=== PATIENT | male | born 1960 | race African-American/Black ===

== ENCOUNTER 2019-12-22 14:13 | Inpatient (IN) | payer MEDICARE, MEDICAID ==
[~2019-12-22] VITALS: Ht 190.5 cm; Wt 95.3 kg
[2019-12-22] MEDS ORDERED: SODIUM CHLORIDE 0.9% 1,000 ML IV ONE (14:31)
[2019-12-22 15:01] LABS: BASOPHILS % 1.2 % (0.0-2.0); EOSINOPHILS % 2.5 % (0.0-5.0); HEMATOCRIT. 42.6 % (42.0-52.0); HEMOGLOBIN. 14.2 g/dL (14.0-18.0); LYMPHOCYTES % 19.5 % (20.0-50.0); MEAN CORPUSCULAR HEMOGLOBIN 30.2 pg (28.0-32.0); MEAN CORPUSCULAR VOLUME 90.8 fL (80.0-94.0); MONOCYTES % 7.1 % (2.0-8.0); NEUTROPHILS % 69.7 % (40.0-76.0); RED BLOOD CELL COUNT 4.69 mill/uL (4.7-6.1); RED CELL DISTRIBUTION WIDTH 13.4 % (11.6-14.6)
[2019-12-22 15:08] LABS: CHLORIDE 109 mEq/L (98-107)
[2019-12-22 15:13] LABS: INR 1.1; PROTHROMBIN TIME 11.3 sec (9.6-11.0)
[2019-12-22 15:40] LABS: MEAN PLATELET VOLUME 10.6 fl (7.4-10.4); PLATELET 126 x1000/uL (130-400)
[2019-12-22] MEDS ORDERED: ASPIRIN 325MG TABLET PO ONE (16:00)
[2019-12-22 17:02] LABS: CLARITY URINE CLEAR (CLEAR); COLOR URINE YELLOW (YELLOW); KETONES URINE NEGATIVE (NEGATIVE); LEUKOCYTE ESTERASE URINE NEGATIVE (NEGATIVE); NITRITE URINE NEGATIVE (NEGATIVE); OCCULT BLOOD URINE NEGATIVE (NEGATIVE); PROTEIN URINE TRACE (NEGATIVE); SPECIFIC GRAVITY URINE 1.022 (1.005-1.030)
[2019-12-22 18:00] VITALS: BP 168/87
[2019-12-22] MEDS ORDERED: CLONIDINE 0.1MG TABLET PO PRN (18:30)
[2019-12-22] MEDS ORDERED: MAGNESIUM/ALUMINUM HYDROXIDE/SIMETHICONE 30ML UDC PO PRN (18:30)
[2019-12-22] MEDS ORDERED: DOCUSATE SODIUM 100MG CAPSULE PO PRN (18:30)
[2019-12-22] MEDS ORDERED: ACETAMINOPHEN 325MG TABLET PO PRN (18:30)
[2019-12-22] MEDS ORDERED: METOPROLOL TARTRATE 25MG TABLET PO SCH (18:30)
[2019-12-22] MEDS ORDERED: HYDROCODONE/ACETAMINOPHEN 5/325MG TABLET PO PRN (18:30)
[2019-12-22] MEDS ORDERED: HYDRALAZINE 20MG/ML VIAL IV PRN (18:30)
[2019-12-22] MEDS ORDERED: ONDANSETRON HCL 4MG/2ML INJ IV PRN (18:30)
[2019-12-22 18:41] VITALS: BP 168/87
[2019-12-22] MEDS ORDERED: POTASSIUM CHLORIDE 20MEQ TABLET SR PO NR (18:45)
[2019-12-22] MEDS: AMLODIPINE 10MG TABLET PO SCH (18:53)
[2019-12-22] MEDS: LISINOPRIL 20MG TABLET PO SCH (18:53)
[2019-12-22 20:00] VITALS: BP 183/93
[2019-12-22] MEDS: ENOXAPARIN 40MG/0.4ML SYR SUBCUT SCH (20:24)
[2019-12-22] MEDS ORDERED: blood pressure (23:04)
[2019-12-23] VITALS: BP 111/58
[2019-12-23 04:00] VITALS: BP 124/77
[2019-12-23 07:11] LABS: BASOPHILS % 0.9 % (0.0-2.0); EOSINOPHILS % 4.2 % (0.0-5.0); HEMOGLOBIN. 13.6 g/dL (14.0-18.0); LYMPHOCYTES % 40.1 % (20.0-50.0); MEAN CORPUSCULAR HEMOGLOBIN 31.3 pg (28.0-32.0); MEAN CORPUSCULAR VOLUME 92.2 fL (80.0-94.0); MONOCYTES % 6.9 % (2.0-8.0); NEUTROPHILS % 47.9 % (40.0-76.0); PLATELET 158 x1000/uL (130-400); RED BLOOD CELL COUNT 4.34 mill/uL (4.7-6.1); RED CELL DISTRIBUTION WIDTH 13.5 % (11.6-14.6)
[2019-12-23 08:00] VITALS: BP 124/44
[2019-12-23 08:06] LABS: CHLORIDE 109 mEq/L (98-107)
[2019-12-23 08:14] LABS: LDL CHOLESTEROL 129 mg/dL (5-100)
[2019-12-23 08:15] LABS: HDL CHOLESTEROL 41 mg/dL (40-59)
[2019-12-23] MEDS: AMLODIPINE 10MG TABLET PO SCH (08:19)
[2019-12-23] MEDS: LISINOPRIL 20MG TABLET PO SCH (08:19)
[2019-12-23] MEDS: ASPIRIN 81MG EC TABLET PO SCH (08:19)
[2019-12-23 12:00] VITALS: BP 116/80
[2019-12-23 16:00] VITALS: BP 120/90
[2019-12-23 20:00] VITALS: BP 139/83
[2019-12-23] MEDS: ENOXAPARIN 40MG/0.4ML SYR SUBCUT SCH (20:52)
[2019-12-23] MEDS: CLOPIDOGREL 75MG TABLET PO SCH (20:52)
[2019-12-23] MEDS ORDERED: ATORVASTATIN CALCIUM 40MG TABLET PO SCH (21:00)
[2019-12-23 22:57] LABS: *AMPHETAMINES SCREEN URINE NEGATIVE (NEGATIVE); *BARBITURATES SCREEN URINE NEGATIVE (NEGATIVE); *BENZODIAZEPINES SCREEN URINE NEGATIVE (NEGATIVE); *COCAINE SCREEN URINE PRESUMTIVE POSITIVE (NEGATIVE); METHADONE URINE SCREEN NEGATIVE (NEGATIVE)
[2019-12-23 22:58] LABS: CANNABINOID URINE SCREEN NEGATIVE (NEGATIVE); OPIATES URINE SCREEN NEGATIVE (NEGATIVE); PHENCYCLIDINE URINE SCREEN NEGATIVE (NEGATIVE)
[2019-12-24] VITALS (7 sets, daily range): BP systolic 120–140; BP diastolic 79–96
[2019-12-24] MEDS: CLOPIDOGREL 75MG TABLET PO SCH (09:13)
[2019-12-24] MEDS: AMLODIPINE 10MG TABLET PO SCH (09:13)
[2019-12-24] MEDS: ASPIRIN 81MG EC TABLET PO SCH (09:13)
[2019-12-24] MEDS: LISINOPRIL 20MG TABLET PO SCH (09:13)
== END 2019-12-24 17:22 | DRG 65 ==
LOC: ER 14:13 → 5WST 16:08 → ENRESERV 17:02
PROVIDERS: ADMIT Hospitalist; ATTEND Hospitalist
PROC: 4A00X4Z Measurement of Central Nervous Electrical Activity, External Approach (ICD-10-PCS; principal; 2019-12-24)
DX: I63.9 Cerebral infarction, unspecified (principal); G81.91 Hemiplegia, unspecified affecting right dominant side; I16.0 Hypertensive urgency; F17.210 Nicotine dependence, cigarettes, uncomplicated; E87.5 Hyperkalemia; I10 Essential (primary) hypertension; E78.5 Hyperlipidemia, unspecified; Z79.899 Other long term (current) drug therapy; Z91.14 Patient's other noncompliance with medication regimen; Z91.19 Patient's noncompliance with other medical treatment and regimen
CPT/HCPCS: 36415; 70551; 71045; 80053; 80061; 80305; 81003; 84484; 85025; 93005; 93880; 93970; 95816; 97110; 97116; 97162; 97166; 99285; J1650; J7030

== ENCOUNTER 2019-12-24 17:20 | Inpatient (IN) | payer MEDICARE, MEDICAID ==
[~2019-12-24] VITALS: Ht 373.4 cm; Wt 94.8 kg
[~2019-12-24 17:20] MED LIST: blood pressure
[2019-12-24] MEDS ORDERED: MAGNESIUM/ALUMINUM HYDROXIDE/SIMETHICONE 30ML UDC PO PRN ×2 (17:45→23:30)
[2019-12-24] MEDS ORDERED: ACETAMINOPHEN 325MG TABLET PO PRN (17:45)
[2019-12-24] MEDS ORDERED: CLONIDINE 0.1MG TABLET PO PRN (17:45)
[2019-12-24] MEDS ORDERED: ONDANSETRON HCL 4MG/2ML INJ IV PRN (17:45)
[2019-12-24] MEDS ORDERED: HYDRALAZINE 20MG/ML VIAL IV PRN (17:45)
[2019-12-24] MEDS ORDERED: HYDROCODONE/ACETAMINOPHEN 5/325MG TABLET PO PRN (18:41)
[2019-12-24 18:59] VITALS: BP 155/88
[2019-12-24 20:00] VITALS: BP 150/93
[2019-12-24] MEDS: ATORVASTATIN CALCIUM 40MG TABLET PO SCH (20:55)
[2019-12-24] MEDS: METOPROLOL TARTRATE 25MG TABLET PO SCH (20:56)
[2019-12-24] MEDS ORDERED: DOCUSATE SODIUM 100MG CAPSULE PO PRN (23:30)
[2019-12-25 08:00] VITALS: BP 140/84
[2019-12-25] MEDS: ENOXAPARIN 40MG/0.4ML SYR SUBCUT SCH (08:18)
[2019-12-25] MEDS: CLOPIDOGREL 75MG TABLET PO SCH (08:20)
[2019-12-25] MEDS: ASPIRIN 81MG EC TABLET PO SCH (08:20)
[2019-12-25] MEDS: LISINOPRIL 20MG TABLET PO SCH (08:20)
[2019-12-25] MEDS: METOPROLOL TARTRATE 25MG TABLET PO SCH ×2 (08:21→21:04)
[2019-12-25] MEDS: AMLODIPINE 10MG TABLET PO SCH (08:21)
[2019-12-25] MEDS ORDERED: DOCUSATE SODIUM 100MG CAPSULE PO SCH (09:00)
[2019-12-25] MEDS ORDERED: ASPIRIN 81MG TABLET PO SCH (09:00)
[2019-12-25] MEDS: DOCUSATE SODIUM 100MG CAPSULE PO SCH (18:00)
[2019-12-25 20:00] VITALS: BP 127/94
[2019-12-25] MEDS: ATORVASTATIN CALCIUM 40MG TABLET PO SCH (21:04)
[2019-12-26 08:15] VITALS: BP 129/77
[2019-12-26] MEDS: CLOPIDOGREL 75MG TABLET PO SCH (08:37)
[2019-12-26] MEDS: DOCUSATE SODIUM 100MG CAPSULE PO SCH ×2 (08:37→16:07)
[2019-12-26] MEDS: ENOXAPARIN 40MG/0.4ML SYR SUBCUT SCH (08:37)
[2019-12-26] MEDS: LISINOPRIL 20MG TABLET PO SCH (08:37)
[2019-12-26] MEDS: ASPIRIN 81MG EC TABLET PO SCH (08:38)
[2019-12-26] MEDS: AMLODIPINE 10MG TABLET PO SCH (08:38)
[2019-12-26 10:05] VITALS: BP 129/82
[2019-12-26] MEDS: METOPROLOL TARTRATE 25MG TABLET PO SCH ×3 (10:06→20:57)
[2019-12-26 19:43] VITALS: BP 127/95
[2019-12-26] MEDS: ATORVASTATIN CALCIUM 40MG TABLET PO SCH (20:53)
[2019-12-27 07:35] VITALS: BP 147/76
[2019-12-27] MEDS: AMLODIPINE 10MG TABLET PO SCH (08:35)
[2019-12-27] MEDS: LISINOPRIL 20MG TABLET PO SCH (08:35)
[2019-12-27] MEDS: ASPIRIN 81MG EC TABLET PO SCH (08:36)
[2019-12-27] MEDS: ENOXAPARIN 40MG/0.4ML SYR SUBCUT SCH (08:36)
[2019-12-27] MEDS: METOPROLOL TARTRATE 25MG TABLET PO SCH ×2 (08:36→20:47)
[2019-12-27] MEDS: CLOPIDOGREL 75MG TABLET PO SCH (08:36)
[2019-12-27] MEDS: DOCUSATE SODIUM 100MG CAPSULE PO SCH ×2 (08:36→16:13)
[2019-12-27 20:21] VITALS: BP 116/78
[2019-12-27] MEDS: ATORVASTATIN CALCIUM 40MG TABLET PO SCH (20:47)
[2019-12-28 07:56] VITALS: BP 117/68
[2019-12-28] MEDS: DOCUSATE SODIUM 100MG CAPSULE PO SCH ×2 (08:05→16:47)
[2019-12-28] MEDS: ASPIRIN 81MG EC TABLET PO SCH (08:05)
[2019-12-28] MEDS: AMLODIPINE 10MG TABLET PO SCH (08:06)
[2019-12-28] MEDS: LISINOPRIL 20MG TABLET PO SCH (08:06)
[2019-12-28] MEDS: CLOPIDOGREL 75MG TABLET PO SCH (08:06)
[2019-12-28] MEDS: ENOXAPARIN 40MG/0.4ML SYR SUBCUT SCH (08:07)
[2019-12-28] MEDS: METOPROLOL TARTRATE 25MG TABLET PO SCH ×2 (08:11→21:06)
[2019-12-28 20:00] VITALS: BP 122/70
[2019-12-28] MEDS: ATORVASTATIN CALCIUM 40MG TABLET PO SCH (21:05)
[2019-12-29 08:00] VITALS: BP 132/71
[2019-12-29] MEDS: LISINOPRIL 20MG TABLET PO SCH (08:29)
[2019-12-29] MEDS: ASPIRIN 81MG EC TABLET PO SCH (08:29)
[2019-12-29] MEDS: DOCUSATE SODIUM 100MG CAPSULE PO SCH ×2 (08:29→16:23)
[2019-12-29] MEDS: CLOPIDOGREL 75MG TABLET PO SCH (08:29)
[2019-12-29] MEDS: ENOXAPARIN 40MG/0.4ML SYR SUBCUT SCH (08:29)
[2019-12-29] MEDS: AMLODIPINE 10MG TABLET PO SCH (08:30)
[2019-12-29] MEDS: METOPROLOL TARTRATE 25MG TABLET PO SCH (08:30)
[2019-12-29 19:26] VITALS: BP 109/58
[2019-12-29] MEDS: ATORVASTATIN CALCIUM 40MG TABLET PO SCH (21:10)
[2019-12-30 07:55] VITALS: BP 141/94
[2019-12-30] MEDS: ENOXAPARIN 40MG/0.4ML SYR SUBCUT SCH (08:26)
[2019-12-30] MEDS: ASPIRIN 81MG EC TABLET PO SCH (08:26)
[2019-12-30] MEDS: DOCUSATE SODIUM 100MG CAPSULE PO SCH (08:26)
[2019-12-30] MEDS: LISINOPRIL 20MG TABLET PO SCH (08:26)
[2019-12-30] MEDS: AMLODIPINE 10MG TABLET PO SCH (08:26)
[2019-12-30] MEDS: CLOPIDOGREL 75MG TABLET PO SCH (08:26)
[2019-12-30 10:47] VITALS: BP 141/94
== END 2019-12-30 15:25 | disposition home or self-care (01) | DRG 56 ==
PROVIDERS: ADMIT Psychiatry & Neurology Neurology; ATTEND Hospitalist
DX: I69.351 Hemiplegia and hemiparesis following cerebral infarction affecting right dominant side (principal); I63.512 Cerebral infarction due to unspecified occlusion or stenosis of left middle cerebral artery; I63.81 Other cerebral infarction due to occlusion or stenosis of small artery; I42.9 Cardiomyopathy, unspecified; J44.1 Chronic obstructive pulmonary disease with (acute) exacerbation; F14.20 Cocaine dependence, uncomplicated; E78.5 Hyperlipidemia, unspecified; I11.9 Hypertensive heart disease without heart failure; F17.210 Nicotine dependence, cigarettes, uncomplicated; I73.9 Peripheral vascular disease, unspecified; I16.0 Hypertensive urgency; R26.81 Unsteadiness on feet; T44.7X5A Adverse effect of beta-adrenoreceptor antagonists, initial encounter; Z91.19 Patient's noncompliance with other medical treatment and regimen; Y92.89 Other specified places as the place of occurrence of the external cause; Z71.6 Tobacco abuse counseling; Z79.899 Other long term (current) drug therapy; Z79.82 Long term (current) use of aspirin
CPT/HCPCS: 92523; 92610; 97110; 97112; 97116; 97162; 97166; 97530; 97535; J1650